=== PATIENT | male | born 1965 | race Caucasian/White ===

== ENCOUNTER 2017-04-28 10:24 | Inpatient (IN) | payer MEDICAID ==
[~2017-04-28] VITALS: Ht 188 cm; Wt 87.7 kg
[2017-04-28 11:55] LABS: Eosinophils # (auto) 0.2 uL; Hemoglobin 7.5 g/dL (13.5-17.5); Lymphocytes # (auto) 1.6 uL; Lymphocytes % (auto) 21.6 % (10.0-50.0); Monocytes # (auto) 0.5 uL; Monocytes % (auto) 6.9 % (0.0-12.0); Neutrophils # (auto) 4.9 uL; White Blood Cell 7.2 10^3/uL (4.4-10.8)
[2017-04-28 11:57] LABS: Basophils # (auto) 0.1 uL; Basophils % (auto) 0.9 % (0.0-2.0); Eosinophils % (auto) 2.5 % (0.0-7.0); Hematocrit 22.6 % (41.0-53.0); Mean Corpuscular Hemoglobin 28.5 pg (28.0-32.0); Mean Corpuscular Hgb Conc. 33.1 g/dL (32.0-36.0); Mean Corpuscular Volume 86.1 fL (80.0-100.0); Neutrophils % (auto) 68.1 % (37.0-80.0); Nucleated Red Blood Cells % 0.1 %; Platelet Count (auto) 416 10^3/uL (140-450); Red Blood Cells 2.62 10^6/uL (4.5-5.90); Red Cell Distribution Width 15.2 % (11.8-14.3)
[2017-04-28 12:37] LABS: INR 0.86 (0.9-1.15); Partial Thromboplastin Time 21.5 sec (22.64-33.71); Prothrombin Time 9.4 sec (9.37-12.3)
[2017-04-28 12:40] LABS: Anion Gap 8 (5-15); Carbon Dioxide 26 mmol/L (21-32); Chloride 105 mmol/L (98-107); Potassium 3.9 mmol/L (3.5-5.1); Sodium 139 mmol/L (136-145)
[2017-04-28 12:41] LABS: Alanine Aminotransferase 29 U/L (16-61); Albumin 3.2 g/dL (3.4-5.0); Alkaline Phosphatase 71 U/L (45-117); Aspartate Aminotransferase 21 U/L (15-37); BUN/Creatinine Ratio 13.4; Bilirubin, Total 0.1 mg/dL (0.2-1.0); Blood Urea Nitrogen 11 mg/dL (7-18); Calcium 8.3 mg/dL (8.5-10.1); GFR African American 127 mL/min; GFR Non-African American 105 mL/min; Glucose 104 mg/dL (74-106); Total Protein 6.5 g/dL (6.4-8.2)
[2017-04-28 12:42] LABS: Magnesium 2.6 mg/dL (1.6-2.6)
[2017-04-28 13:07] LABS: Lipase 342 U/L (73-393)
[2017-04-28 13:08] LABS: Amylase 102 U/L (25-115)
[2017-04-28 14:01] LABS: Urine Bacteria NONE SEEN /hpf (None Seen); Urine Blood Negative /uL (Negative); Urine Mucus FEW (None Seen); Urine Specific Gravity 1.023 (1.001-1.035); Urine WBC 1 /hpf (0 - 3)
[2017-04-28] MEDS: SODIUM CHLORIDE 0.9% 1,000 ML IV SCH (16:47)
[2017-04-28] MEDS ORDERED: PROMETHAZINE HCL 25 MG/ML 1ML IV PRN (17:00)
[2017-04-28] MEDS ORDERED: LORazepam 0.5 MG TAB PO PRN (17:00)
[2017-04-28] MEDS ORDERED: TEMAZEPAM 15 MG CAP PO PRN (17:00)
[2017-04-28] MEDS ORDERED: LACTULOSE 20Gm/30ML SOLN PO PRN (17:00)
[2017-04-28] MEDS ORDERED: NITROGLYCERIN 0.4 MG SL TAB SL PRN (17:00)
[2017-04-28] MEDS ORDERED: PANTOPRAZOLE 40 MG/10 ML VIAL IV ONE (17:00)
[2017-04-28] MEDS ORDERED: ACETAMINOPHEN 500 MG TAB PO PRN (17:00)
[2017-04-28] MEDS ORDERED: MORPHINE SULF INJ 2 MG/ML SYRINGE 1ML IV PRN ×2 (17:00)
[2017-04-28 18:37] LABS: Hemoglobin 7.5 g/dL (13.5-17.5)
[2017-04-28 18:39] LABS: Hematocrit 22.4 % (41.0-53.0)
[2017-04-28 21:40] VITALS: BP 137/79
[2017-04-28] MEDS: metroNIDAZOLE 500MG/100ML 100 ML IV SCH (22:11)
[2017-04-28] MEDS: HYDROcodone-ACET 5/325MG TAB PO PRN (22:11)
[2017-04-28 22:17] VITALS: BP 137/79
[2017-04-28] MEDS ORDERED: INFLUENZA QUAD 2017-2018 0.5 ML SYRG IM ONE (23:45)
[2017-04-29] VITALS (15 sets, daily range): BP systolic 112–140; BP diastolic 54–86
[2017-04-29 00:46] LABS: Hematocrit 20.3 % (41.0-53.0)
[2017-04-29 00:49] LABS: Hemoglobin 6.9 g/dL (13.5-17.5)
[2017-04-29] MEDS: SODIUM CHLORIDE 0.9% 1,000 ML IV SCH ×3 (01:58→17:00)
[2017-04-29] MEDS ORDERED: PNEUMOCOCCAL VACC POLYS 25 MCG/0.5 ML VIAL IM ONE (02:00)
[2017-04-29] MEDS: metroNIDAZOLE 500MG/100ML 100 ML IV SCH (06:43)
[2017-04-29] MEDS ORDERED: cefTRIAXone 1GM/10ml IVPUSH 10 ML IV SCH (09:00)
[2017-04-29] MEDS ORDERED: PANTOPRAZOLE 40 MG TAB PO SCH (10:00)
[2017-04-29] MEDS ORDERED: PANTOPRAZOLE 80 MG in SODIUM CHL 0.9% 60 ML IV SCH (10:00)
[2017-04-29] MEDS ORDERED: GOLYTELY 4L KIT PO ONE (10:15)
[2017-04-29 10:19] LABS: Basophils # (auto) 0.1 uL; Eosinophils # (auto) 0.3 uL; Lymphocytes # (auto) 1.7 uL; Neutrophils # (auto) 4.4 uL; Nucleated Red Blood Cells % 0.1 %
[2017-04-29 10:25] LABS: Basophils % (auto) 1.3 % (0.0-2.0); Eosinophils % (auto) 3.7 % (0.0-7.0); Hematocrit 24.1 % (41.0-53.0); Hemoglobin 8.3 g/dL (13.5-17.5); Lymphocytes % (auto) 24.7 % (10.0-50.0); Mean Corpuscular Hemoglobin 29.5 pg (28.0-32.0); Mean Corpuscular Hgb Conc. 34.6 g/dL (32.0-36.0); Mean Corpuscular Volume 85.2 fL (80.0-100.0); Monocytes # (auto) 0.4 uL; Monocytes % (auto) 6.4 % (0.0-12.0); Neutrophils % (auto) 63.9 % (37.0-80.0); Platelet Count (auto) 354 10^3/uL (140-450); Red Blood Cells 2.83 10^6/uL (4.5-5.90); Red Cell Distribution Width 15.3 % (11.8-14.3); White Blood Cell 6.9 10^3/uL (4.4-10.8)
[2017-04-29] MEDS ORDERED: PANTOPRAZOLE 40 MG/10 ML VIAL IV ONE (10:30)
[2017-04-29 10:32] LABS: Albumin 2.7 g/dL (3.4-5.0); BUN/Creatinine Ratio 7.9; Bilirubin, Total 0.3 mg/dL (0.2-1.0); Potassium 3.9 mmol/L (3.5-5.1); Total Protein 5.7 g/dL (6.4-8.2)
[2017-04-29] MEDS: HYDROcodone-ACET 5/325MG TAB PO PRN ×2 (12:04→21:01)
[2017-04-29 19:33] LABS: Basophils # (auto) 0.1 uL; Basophils % (auto) 0.7 % (0.0-2.0); Eosinophils # (auto) 0.2 uL; Eosinophils % (auto) 2.8 % (0.0-7.0); Hematocrit 24.7 % (41.0-53.0); Hemoglobin 8.2 g/dL (13.5-17.5); Lymphocytes # (auto) 1.6 uL; Lymphocytes % (auto) 22.9 % (10.0-50.0); Mean Corpuscular Hgb Conc. 33.3 g/dL (32.0-36.0); Mean Corpuscular Volume 87.2 fL (80.0-100.0); Monocytes # (auto) 0.5 uL; Monocytes % (auto) 7.5 % (0.0-12.0); Neutrophils # (auto) 4.7 uL; Neutrophils % (auto) 66.1 % (37.0-80.0); Platelet Count (auto) 381 10^3/uL (140-450); Red Blood Cells 2.83 10^6/uL (4.5-5.90)
[2017-04-29] MEDS: PANTOPRAZOLE 40 MG/10 ML VIAL IV SCH (21:33)
[2017-04-30] MEDS: SODIUM CHLORIDE 0.9% 1,000 ML IV SCH ×2 (00:47→08:45)
[2017-04-30 05:00] VITALS: BP 123/72
[2017-04-30 07:43] LABS: Basophils # (auto) 0.1 uL; Eosinophils # (auto) 0.2 uL; Eosinophils % (auto) 3.8 % (0.0-7.0); Lymphocytes # (auto) 1.6 uL; Monocytes # (auto) 0.6 uL; Neutrophils # (auto) 3.6 uL; White Blood Cell 6.1 10^3/uL (4.4-10.8)
[2017-04-30 07:46] LABS: Basophils % (auto) 1.1 % (0.0-2.0); Lymphocytes % (auto) 26.2 % (10.0-50.0); Mean Corpuscular Hgb Conc. 33.9 g/dL (32.0-36.0); Monocytes % (auto) 10.1 % (0.0-12.0); Neutrophils % (auto) 58.8 % (37.0-80.0); Platelet Count (auto) 405 10^3/uL (140-450); Red Cell Distribution Width 15.1 % (11.8-14.3)
[2017-04-30 07:47] LABS: Hematocrit 25.3 % (41.0-53.0); Hemoglobin 8.4 g/dL (13.5-17.5); Mean Corpuscular Volume 85.8 fL (80.0-100.0); Red Blood Cells 2.95 10^6/uL (4.5-5.90)
[2017-04-30 08:00] VITALS: BP 108/58
[2017-04-30 08:05] LABS: BUN/Creatinine Ratio 7.7; Calcium 8.1 mg/dL (8.5-10.1); Potassium 4.2 mmol/L (3.5-5.1)
[2017-04-30] MEDS ORDERED: LIDOCAINE VISCOUS 2% 15ML UD ONE (08:13)
[2017-04-30] MEDS ORDERED: SODIUM CHLORIDE LOCK 10 ML ONE (08:13)
[2017-04-30] MEDS ORDERED: diphenhdrAMINE HCL 50 MG/1 ML VL ONE (08:14)
[2017-04-30 08:49] VITALS: BP 108/58
[2017-04-30] MEDS: PANTOPRAZOLE 40 MG/10 ML VIAL IV SCH (09:34)
[2017-04-30] MEDS: MIDAZOLAM HCL 5 MG/ML-1ML VIAL ONE ×3 (11:02→11:18)
[2017-04-30] MEDS: fentaNYL CITRATE 100 MCG/2 ML VL ONE ×3 (11:02→11:18)
[2017-04-30] MEDS ORDERED: PANT40T PO (15:01)
[2017-04-30 15:46] VITALS: BP 110/70
== END 2017-04-30 16:35 | disposition home health service (06) | DRG 241 ==
LOC: ER 10:24 → OVERFLOW 10:25 → CENTRAL 21:40
PROVIDERS: ADMIT Internal Medicine; ATTEND Internal Medicine
PROC: 30233N1 Transfusion of Nonautologous Red Blood Cells into Peripheral Vein, Percutaneous Approach (ICD-10-PCS; principal; 2017-04-29)
PROC: 0DB68ZX Excision of Stomach, Via Natural or Artificial Opening Endoscopic, Diagnostic (ICD-10-PCS; 2017-04-30 11:00)
DX: K26.4 Chronic or unspecified duodenal ulcer with hemorrhage (principal); N20.0 Calculus of kidney; F15.90 Other stimulant use, unspecified, uncomplicated; F17.210 Nicotine dependence, cigarettes, uncomplicated; D62 Acute posthemorrhagic anemia; K62.1 Rectal polyp; K64.8 Other hemorrhoids; K29.81 Duodenitis with bleeding; Z23 Encounter for immunization; Z82.49 Family history of ischemic heart disease and other diseases of the circulatory system; Z87.442 Personal history of urinary calculi
CPT/HCPCS: 36415; 43239; 71046; 74176; 80048; 80053; 80061; 81001; 82150; 82270; 82378; 83690; 83735; 83880; 84484; 85014; 85018; 85025; 85045; 85610; 85652; 85730; 86141; 86850; 86900; 86901; 86920; 87081; 87493; 93005; 96365; 96375; C9113; J2250; J3490

== ENCOUNTER 2019-03-29 10:48 | Emergency (ER) | payer MEDICAID ==
[~2019-03-29] VITALS: Ht 188 cm; Wt 88.5 kg
[~2019-03-29 10:48] MED LIST: PANT40T PO
[2019-03-29 11:22] LABS: Urine Bacteria FEW /hpf (None Seen); Urine Blood Negative /uL (Negative); Urine Mucus FEW (None Seen); Urine Specific Gravity 1.027 (1.001-1.035); Urine WBC 2 /hpf (0 - 3)
[2019-03-29 11:39] LABS: Basophils # (auto) 0 uL; Eosinophils # (auto) 0.2 uL; Hemoglobin 14.3 g/dL (13.5-17.5); Monocytes # (auto) 1.1 uL
[2019-03-29 11:41] LABS: Basophils % (auto) 0.3 % (0.0-2.0); Eosinophils % (auto) 3.1 % (0.0-7.0); Hematocrit 43.1 % (41.0-53.0); Lymphocytes # (auto) 1.1 uL; Lymphocytes % (auto) 15.4 % (10.0-50.0); Mean Corpuscular Hgb Conc. 33.1 g/dL (32.0-36.0); Mean Corpuscular Volume 81.5 fL (80.0-100.0); Monocytes % (auto) 15.3 % (0.0-12.0); Neutrophils # (auto) 4.7 uL; Neutrophils % (auto) 65.9 % (37.0-80.0); Platelet Count (auto) 344 10^3/uL (140-450); Red Blood Cells 5.29 10^6/uL (4.5-5.90); Red Cell Distribution Width 15.1 % (11.8-14.3); White Blood Cell 7.2 10^3/uL (4.4-10.8)
[2019-03-29 12:04] LABS: Albumin 3.3 g/dL (3.4-5.0); BUN/Creatinine Ratio 15.9; Potassium 3.9 mmol/L (3.5-5.1)
[2019-03-29 12:10] LABS: Bilirubin, Total 0.2 mg/dL (0.2-1.0); Total Protein 7.9 g/dL (6.4-8.2)
[2019-03-29] MEDS ORDERED: SODIUM CHLORIDE 0.9% 1,000 ML IV ONE (21:30)
[2019-03-29 22:22] LABS: Amylase 63 U/L (25-115); Lipase 148 U/L (73-393)
[2019-03-29] MEDS ORDERED: metroNIDAZOLE 500 MG TAB PO ONE (23:30)
[2019-03-29] MEDS ORDERED: cefTRIAXone 1GM/50ML D5W 50 ML IV ONE (23:30)
[2019-03-30 01:13] VITALS: BP 112/60
== END 2019-03-30 02:20 | disposition home or self-care (01) ==
LOC: ER 10:50
DX: K52.9 Noninfective gastroenteritis and colitis, unspecified (principal); K21.9 Gastro-esophageal reflux disease without esophagitis; F17.210 Nicotine dependence, cigarettes, uncomplicated; Z79.899 Other long term (current) drug therapy
CPT/HCPCS: 36415; 74176; 80053; 81001; 82150; 83690; 85025; 96365; 99284; J0696; J7030

== ENCOUNTER 2025-02-26 14:15 | Emergency (ER) | payer SELFPAY ==
[~2025-02-26] VITALS: Ht 188 cm; Wt 68.5 kg
--- NOTE | 2025-02-26 15:04 | ED.PDOC ---
GI ASSESSMENT HPI Comments 59-year-old male presents to the ER with a prior MHx of bleeding ulcers in the chief complaint of abdominal pain/constipation. The patient reports that he has a sudden onset of epigastric and right upper quadrant pain for the past 20 days associated with N/V and constipation. The patient is currently taking [id number] meds with a mild relief at this time. The patient's last bowel movement was three days ago. Denies any other symptoms at this time. Chief Complaint: Constipation Time Seen by MD: 15:00 Primary Care Provider: NONE Reviewed Notes: Nurses Notes, Medications, Allergies Allergies: Coded Allergies: NO KNOWN ALLERGIES (Unverified , 04/28/17) Home Meds Active Scripts Docusate Sodium (Colace) 100 Mg Cap, 1 CAP PO BID for 10 Days, #20 CAP 0 Refills Prov:NATALY SALDANA NP 02/26/25 Polyethylene Glycol 3350 (Miralax) 17 Gm Pow, 17 GM PO UD for 30 Days, #1 POW 0 Refills Prov:NATALY SALDANA NP 02/26/25 Pantoprazole Sodium Sesquihydr (Protonix) 40 Mg Tab, 40 MG PO DAILY for 30 Days, #30 TAB 0 Refills Prov:NATALY SALDANA NP 02/26/25 Pantoprazole Sodium Sesquihydr (Pantoprazole Sodium) 40 Mg Tab, 40 MG PO BID, #60 TAB 1 Refill Prov:PAULINE GREY MD 04/30/17 Information Source: Patient Mode of Arrival: Ambulatory Timing: Weeks Duration: Since onset Prehospital treatment: None Quality: Aching Vomitus: Bilious Stool: Other (Constipation) Severity: Moderate Recent: None Recent Hx of: None Pain Location: Epigastric, RUQ Associated sign and symptoms: Nausea, Vomiting, Constipation, Abdominal Pain Past Medical History PAST MEDICAL HISTORY: GERD Past Medical History (Other): Bleeding ulcer Surgical History: Denies all surgeries Family History Family History: Reviewed,noncontributory to illness, Unknown Social History Smoker: Cigarettes, Less Than 1 Pack/Day Alcohol: Rarely Drugs: Marijuana, Methamphetamine Lives In: Home Constitutional: denies: chills, diaphoresis, fatigue, fever, malaise, sweats, weakness, others EENTM: denies: blurred vision, double vision, ear bleeding, ear discharge, ear drainage, ear pain, ear ringing, eye pain, eye redness, hearing loss, mouth pain, mouth swelling, nasal discharge, nose bleeding, nose congestion, nose pain, photophobia, tearing, throat pain, throat swelling, voice changes, others Respiratory: denies: cough, hemoptysis, orthopnea, SOB at rest, shortness of breath, SOB with excertion, stridor, wheezing, others Cardiovascular: denies: chest pain, dizzy spells, diaphoresis, Dyspnea on exertion, edema, irregular heart beat, left arm pain, lightheadedness, palpitations, PND, syncope, others Gastrointestinal: reports: constipated, nausea, vomiting; denies: abdomen distended, abdominal pain, blood streaked bowels, diarrhea, dysphagia, difficulty swallowing, hematemesis, melena, poor appetite, poor fluid intake, rectal bleeding, rectal pain, others Genitourinary: denies: burning, dysuria, flank pain, frequency, hematuria, incontinence, penile discharge, penile sore, pain, testicle pain, testicle swelling, urgency, others Neurological: denies: dizziness, fainting, headache, left sided numbness, left sided weakness, numbness, paresthesia, pre-existing deficit, right sided numbness, right sided weakness, seizure, speech problems, tingling, tremors, we akness, others Musculoskeletal: denies: back pain, gout, joint pain, joint swelling, muscle pain, muscle stiffness, neck pain, others Integumetry: denies: bruises, change in color, change in hair/nails, dryness, laceration, lesions, lumps, rash, wounds, others Allergic/Immunocompromised: denies: Difficulty Healing, Frequent Infections, Hives, Itching, others Hematologic/Lymphatic: denies: anemia, blood clots, easy bleeding, easy bruising, swollen glands, others Endocrine: denies: excessive hunger, excessive sweating, excessive thirst, excessive urination, flushing, intolerance to cold, intolerance to heat, unexplained weight gain, unexplained weight loss, others Psychiatric: denies: anxiety, bipolar disorder, depression, hopeless, panic disorder, schizophrenia, sleepless, suicidal, others All Other Systems: Reviewed and Negative Physical Exam Exam Comments Localized TTP to the epigastric and right upper quadrant pain General Appearance: No Apparent Distress, Normal HEENT: Normal ENT Inspection, Pharynx Normal, TMs Normal Neck: Full Range of Motion, Non-Tender, Normal, Normal Inspection Respiratory: Chest Non-Tender, Lungs Clear, No Accessory Muscle Use, No Respiratory Distress, Normal Breath Sounds Cardiovascular: No Edema, No JVD, No Murmur, No Gallop, Normal Peripheral Pulses, Regular Rate/Rhythm Breast Exam: Deferred Gastrointestinal: No Organomegaly, Non Tender, No Pulsatile Mass, Normal Bowel Sounds, Soft Genitalia: Deferred Pelvic: Deferred Rectal: Deferred Extremities: No calf tenderness, Normal capillary refill, Normal inspection, Normal range of motion, Non-tender, No pedal edema Musculoskeletal : Apperance: Normal Neurologic: Alert, distribution center administrator II-XII nml as Tested, No Motor Deficits, Normal Affect, Normal Mood, No Sensory Deficits Cerebellar Function: Normal Reflexes: Normal Skin: Dry, Normal Color, Warm Lymphatic: No Adenopathy Was a procedure done? Was a procedure done?: No GI differential Dx Differential Diagnosis: Other X-Ray, Labs, Meds, VS Vital Signs Date Time Temp Pulse Resp B/P (MAP) Pulse Ox O2 Delivery O2 Flow Rate FiO2 02/26/25 17:09 97.9 97 16 107/78 (88) 100 97.9 02/26/25 14:18 98.1 94 16 114/77 97 98.1 Lab Test 02/26/25 15:01 Range/Units White Blood Count 5.8 4.4-10.8 10^3/uL Red Blood Count 3.08 L 4.5-5.90 10^6/uL Hemoglobin 8.4 L 13.5-17.5 g/dL Hematocrit 25.8 L 41.0-53.0 % Mean Corpuscular Volume 84.0 80.0-100.0 fL Mean Corpuscular Hemoglobin 27.3 L 28.0-32.0 pg Mean Corpuscular Hemoglobin Concent 32.5 32.0-36.0 g/dL Red Cell Distribution Width 14.8 H 11.8-14.3 % Platelet Count 602 H 140-450 10^3/uL Mean Platelet Volume 6.5 L 6.9-10.8 fL Neutrophils (%) (Auto) 64.9 37.0-80.0 % Lymphocytes (%) (Auto) 24.3 10.0-50.0 % Monocytes (%) (Auto) 8.1 0.0-12.0 % Eosinophils (%) (Auto) 1.5 0.0-7.0 % Basophils (%) (Auto) 1.2 0.0-2.0 % Neutrophils # (Auto) 3.7 1.6-8.6 10 ^3/uL Lymphocytes # (Auto) 1.4 0.4-5.4 10 ^3/uL Monocytes # (Auto) 0.5 0-1.3 10 ^3/uL Eosinophils # (Auto) 0.1 0-0.8 10 ^3/uL Basophils # (Auto) 0.1 0-0.2 10 ^3/uL Nucleated Red Blood Cells 0.1 % Sodium Level 140 136-145 mmol/L Potassium Level 4.0 3.5-5.1 mmol/L Chloride Level 100 98-107 mmol/L Carbon Dioxide Level 30 20-31 mmol/L Anion Gap 10 5-15 Blood Urea Nitrogen 17 9-23 mg/dL Creatinine 0.87 0.700-1.30 mg/dL Glomerular Filtration Rate Calc 99 >90 mL/min BUN/Creatinine Ratio 19.5 10.0-20.0 Serum Glucose 109 H 74-106 mg/dL Calcium Level 8.5 L 8.7-10.4 mg/dL Lipase 63 H 12-53 U/L Current Medications Medications (Trade) Dose Ordered Sig/Lei Route Start Time Stop Time Status Last Admin Belladonna Alkaloids/ Phenobarbital ( Elixir) 10 ml ONCE ONCE PO 02/26/25 17:00 02/26/25 17:01 DC 02/26/25 17:10 Al Hydrox/Mg Hydrox/Simethicone (Maalox Plus) 30 ml ONCE ONCE PO 02/26/25 17:00 02/26/25 17:01 DC 02/26/25 17:09 Lidocaine HCl (Xylocaine 2% Viscous) 15 ml ONCE ONCE PO 02/26/25 17:00 02/26/25 17:01 DC 02/26/25 17:09 X-Ray, Labs, Meds, VS Comment 59-year-old male presents to the ER with a prior MHx of bleeding ulcers in the chief complaint of abdominal pain/constipation. Patient arrives alert and oriented, ABC's intact, afebrile, vital signs stable, saturating well in room air Peripheral IV insertion+ labs were ordered. CBC was ordered to exclude anemia, blood loss, or infection. BMP was ordered to exclude electrolyte abnormalities, renal failure, dehydration, hyperglycemia Lipase Diagnostic imaging ordered by me and results interpreted by radiology : Ultrasound of gallbladder, x-ray of abdomen Considered gallbladder vs liver vs pancreatic etiology for the patient's right upper quadrant abdominal pain. The differential for gallbladder related pathology includes but is not limited to biliary colic versus cholelithiasis versus acute cholecystitis versus acute cholangitis versus choledocholithiasis. A RUQ Ultrasound was obtained and results showed no acute findings Finally, a lipase was obtained to evaluate for pancreatitis and results were:n ormal Additional MDM Review of External, Non-ED records: External records reviewed. Discussion with independent historian (EMS, family) history obtained from the patient/parents (if applicable) at bedside Chronic conditions affecting care: None Social determinants of health affecting care: None Consideration of admission (observation or admission): I considered escalation of care to admission for this patient, however given the reassuring workup, the patient is safe for outpatient management. Discussion with the Radiology: No Tests considered but not performed: Prescription medication considered but not given: 12 lead EKG interpretation: Time of 1ST Reevaluation: 15:30 Reevaluation 1ST: Improved Patient Education/Counseling: Diagnosis, Treatment, Prognosis Family Education/Counseling: No Family Present SEPSIS Sepsis Screen Date sepsis recognized/suspect: Feb 26, 2025 Time Sepsis recognized/suspect: 1418 Recent Procedure: No On Antibiotic Therapy: No Respiratory Rate >20: No Heart Rate >90: Yes Temp<36 C (96.8 F) or >38.3 C: No SBP <90 or MAP <65 mmHG: No New Acute Mental Status Change: No Is the patient on CPAP, BIPAP,: No Physician Orders Kub Abdomen Single View (02/26/25 14:40) Gallbladder (02/26/25 14:40) Vital Signs Date Time Temp Pulse Resp B/P (MAP) Pulse Ox O2 Delivery O2 Flow Rate FiO2 02/26/25 17:09 97.9 97 16 107/78 (88) 100 97.9 02/26/25 14:18 98.1 94 16 114/77 97 98.1 Laboratory Tests Test 02/26/25 15:01 White Blood Count 5.8 10^3/uL (4.4-10.8) Departure 1 Departure Time of Disposition: 16:53 Impression: Primary Impression: Epigastric pain Additional Impression: RUQ pain Disposition: 01 HOME / SELF CARE / HOMELESS Condition: Stable e-Prescriptions Docusate Sodium (Colace) 100 Mg Cap 1 CAP PO BID for 10 Days, #20 CAP 0 Refills Prov: NATALY SALDANA NP 02/26/25 Polyethylene Glycol 3350 (Miralax) 17 Gm Pow 17 GM PO UD for 30 Days, #1 POW 0 Refills Prov: NATALY SALDANA NP 02/26/25 Pantoprazole Sodium Sesquihydr (Protonix) 40 Mg Tab 40 MG PO DAILY for 30 Days, #30 TAB 0 Refills Prov: NATALY SALDANA NP 02/26/25 Critical Care Note Critical Care Time?: No Stability Stability form required: No Heart Score Heart Score: Heart Score Response (Comments) Value History N/A 0 EKG N/A 0 Age N/A 0 Risk Factors N/A 0 Troponin N/A 0 Total 0 I personally scribed for NATALY SALDANA NP ([email or web address]) on 02/26/25 at 15:04. Electronically submitted by Adan Bird ([email or web address]). NATALY SALDANA NP Feb 26, 2025 15:04
--- NOTE | 2025-02-26 15:23 | DVH ---
Exam: XY KUB ABDOMEN SINGLE VIEW Indication: R/o constipation obstruction Comparison: CT ABD/PEL W/CONTRAST on DOS: 01/12/25 Technique: 2 radiographic views of the abdomen. Findings: Nonobstructive bowel gas pattern noted. Moderate to large volume colonic stool. There is no definite evidence for pneumoperitoneum. No abnormal calcifications noted. Impression: Moderate to large volume colonic stool.
[2025-02-26 15:40] LABS: Hematocrit 25.8 % (41.0-53.0); Hemoglobin 8.4 g/dL (13.5-17.5); Mean Corpuscular Hemoglobin 27.3 pg (28.0-32.0); Mean Corpuscular Volume 84.0 fL (80.0-100.0); Nucleated Red Blood Cells % 0.1 %
[2025-02-26 15:44] LABS: Chloride 100 mmol/L (98-107); Potassium 4.0 mmol/L (3.5-5.1); Sodium 140 mmol/L (136-145)
[2025-02-26 15:45] LABS: Anion Gap 10 (5-15); Carbon Dioxide 30 mmol/L (20-31)
[2025-02-26 15:50] LABS: BUN/Creatinine Ratio 19.5 (10.0-20.0); Blood Urea Nitrogen 17 mg/dL (9-23)
[2025-02-26 15:57] LABS: Calcium 8.5 mg/dL (8.7-10.4); Glucose 109 mg/dL (74-106); Lipase 63 U/L (12-53)
--- NOTE | 2025-02-26 16:29 | DVH ---
Technique: Real-time ultrasound imaging of the abdomen was performed with grayscale and color Doppler. Indication: RUQ pain Comparison: None Findings: Liver measures 17.1 cm. It is increased in echogenicity and echotexture without focal mass. Portal vein is normal in caliber and demonstrates normal hepatopetal flow. Gallbladder demonstrates no evidence for cholelithiasis. There is gallbladder distention. There is no pericholecystic fluid. The wall thickness is normal. The common bile duct measures 5 mm. No intrahepatic biliary ductal dilatation. The right kidney measures 7.9 cm., suboptimally characterizedThere is no hydronephrosis or sonographic evidence of nephrolithiasis. The visualized portion of the pancreas is unremarkable. The visualized portion of the IVC is unremarkable. Impression: Echogenic liver which can be seen with hepatic steatosis, cirrhosis. Hepatomegaly Gallbladder distention. If there is concern for cholecystitis, recommend HIDA scan. Suboptimal evaluation of the right kidney.
[2025-02-26] MEDS ORDERED: POLY335015 PO (16:56)
[2025-02-26] MEDS ORDERED: DOCU-94 PO (16:56)
[2025-02-26] MEDS ORDERED: PANT40TA2 PO (16:56)
[2025-02-26 17:09] VITALS: BP 107/78; PULSE 97; RESP 16; TEMP 97.9; O2SAT 100
[2025-02-26] MEDS: LIDOCAINE VISCOUS 2% 15ML UD PO ONE (17:09)
[2025-02-26] MEDS: MAALOX PLUS or MAALOX 30 ML PO ONE (17:09)
[2025-02-26] MEDS: DONNATAL 5ml ORAL Elix (BELLADONNA ALK-PHENOBARB) PO ONE (17:10)
== END 2025-02-26 17:27 | disposition home or self-care (01) ==
LOC: ER 14:15
DX: R10.11 Right upper quadrant pain (principal); R10.13 Epigastric pain; K21.9 Gastro-esophageal reflux disease without esophagitis; F12.90 Cannabis use, unspecified, uncomplicated; F19.90 Other psychoactive substance use, unspecified, uncomplicated; F17.210 Nicotine dependence, cigarettes, uncomplicated; F10.90 Alcohol use, unspecified, uncomplicated; Z79.899 Other long term (current) drug therapy; Y90.9 Presence of alcohol in blood, level not specified
CPT/HCPCS: 36415; 74018; 76705; 80048; 83690; 85025